=== PATIENT | male | born 1955 | race Caucasian/White ===

== ENCOUNTER 2022-07-31 06:25 | Inpatient (IN) ==
[2022-07-29 12:31] LABS: Albumin 3.5 G/DL (3.4-5.0); Bilirubin,Total 0.6 MG/DL (0.20-1.00); Calcium 8.4 MG/DL (8.5-10.1); Osmolality,Calculated 276.5 MOS/KG (273-304); Potassium 4.2 MMOL/L (3.5-5.1)
[2022-07-29 19:53] LABS: Basophils % 0.3 % (0.0-0.8); Eosinophils # 0.3 10*3/uL (0.0-0.87); Eosinophils % 3.9 % (0.00-10.9); Hemoglobin 12.1 GM/DL (14.0-18.0); Immature Granulocytes % 0.5 %; Immature Granulocytes Absolute 0.03 #; Lymphocytes # 1.2 10*3/uL (1.4-4.0); Lymphocytes % 18.3 % (21.2-54.2); Mean Corpuscular HGB Conc 32.7 GM/DL (32-36); Mean Corpuscular Volume 91.1 FL (87-102); Mean Platelet Volume 10.8 FL (9.6-12.0); Monocytes # 0.6 10*3/uL (0.11-0.8); Monocytes % 9.4 % (1.7-12.7); Neutrophils % 67.6 % (38.7-73.9); Platelet Count 154 T/CUMM (130-400); Red Blood Count 4.06 MC/CUMM (3.8-5.5); Red Cell Distribution Width 14.3 % (9.3-17.3); White Blood Count 6.4 T/CUMM (4-12)
[2022-07-31] MEDS ORDERED: LACTATED RINGERS 1,000 ML IV SCH (08:30)
[2022-07-31] MEDS ORDERED: LIDOCAINE 2% 5 ML VIAL ONE (09:44)
[2022-07-31] MEDS ORDERED: NEOSTIGMINE 10 MG/10 ML VIAL ONE (09:44)
[2022-07-31] MEDS ORDERED: propofoL 200 MG/20 ML VIAL IV ONE (09:44)
[2022-07-31] MEDS ORDERED: GLYCOPYRROLATE 0.4 MG/2 ML VIAL ONE (09:45)
[2022-07-31] MEDS ORDERED: SEVOFLURANE 1 UNIT/15 MINUTE INH ONE (09:45)
[2022-07-31] MEDS ORDERED: MIDAZOLAM 2 MG/2 ML VIAL ONE (09:45)
[2022-07-31] MEDS ORDERED: ROCURONIUM 50 MG/5 ML VIAL IV ONE (09:45)
[2022-07-31] MEDS ORDERED: fentaNYL 250 MCG/5 ML VIAL ONE (09:45)
[2022-07-31] MEDS ORDERED: HEPARIN/NACL 0.9% 2 UNITS/ML 1,000 UNIT/500 ML BAG IV ONE (09:47)
[2022-07-31] MEDS ORDERED: HEPARIN 10,000 UNIT/10 ML VIAL ONE (09:47)
[2022-07-31] MEDS ORDERED: HEPARIN/NACL 0.9% 2 UNITS/ML 6,000 UNIT/3,000 ML BAG IV ONE (10:29)
[2022-07-31] MEDS ORDERED: ONDANSETRON 4 MG/2 ML VIAL IV PRN (12:23)
[2022-07-31] MEDS: HYDROmorphone 1 MG/1 ML SYRINGE IV PRN ×2 (15:21→21:47)
[2022-07-31] MEDS: LACTATED RINGERS 1,000 ML IV SCH ×2 (19:25→20:30)
[2022-07-31] MEDS ORDERED: amLODIPine 5 MG TABLET PO SCH (21:00)
[2022-07-31] MEDS: TAMSULOSIN 0.4 MG CAPSULE PO SCH (21:39)
[2022-07-31] MEDS: lisinopriL 10 MG TABLET PO SCH (21:43)
[2022-07-31] MEDS: DAROLUTAMIDE 300 MG PO SCH (21:43)
[2022-08-01] MEDS: LACTATED RINGERS 1,000 ML IV SCH (02:30)
[2022-08-01 05:51] LABS: Basophils % 0.1 % (0.0-0.8); Eosinophils % 0.1 % (0.00-10.9); Hematocrit 36.5 VOL% (42.0-52.0); Hemoglobin 11.8 GM/DL (14.0-18.0); Immature Granulocytes % 0.6 %; Immature Granulocytes Absolute 0.06 #; Lymphocytes # 0.6 10*3/uL (1.4-4.0); Lymphocytes % 5.5 % (21.2-54.2); Mean Corpuscular HGB Conc 32.3 GM/DL (32-36); Mean Corpuscular Volume 91.3 FL (87-102); Monocytes # 0.8 10*3/uL (0.11-0.8); Monocytes % 7.5 % (1.7-12.7); Neutrophils % 86.2 % (38.7-73.9); Platelet Count 129 T/CUMM (130-400); Red Cell Distribution Width 13.8 % (9.3-17.3); White Blood Count 10.3 T/CUMM (4-12)
[2022-08-01 06:15] LABS: Calcium 7.8 MG/DL (8.5-10.1); Osmolality,Calculated 276.7 MOS/KG (273-304); Potassium 4.1 MMOL/L (3.5-5.1)
[2022-08-01] MEDS ORDERED: DAPAGLIFLOZIN 10 MG TABLET PO SCH (09:00)
[2022-08-01] MEDS ORDERED: METOPROLOL SUCCINATE XL 25 MG TABLET PO SCH (09:00)
[2022-08-01] MEDS: TAMSULOSIN 0.4 MG CAPSULE PO SCH (09:52)
[2022-08-01] MEDS: lisinopriL 10 MG TABLET PO SCH (09:52)
[2022-08-01] MEDS: DAROLUTAMIDE 300 MG PO SCH (10:22)
[2022-08-01 11:56] VITALS: BP 134/81
== END 2022-08-01 13:06 | disposition home or self-care (01) | DRG 269 ==
LOC: N.SDS 06:25 → N.SDSINP 06:27 → EDSTATUS 06:30 → N.SDSINP 12:23 → N.5E 14:03
PROVIDERS: ADMIT Surgery; ATTEND Surgery
PROC: IRERAAA (2022-07-31 06:35)

== ENCOUNTER 2022-08-08 19:12 | Inpatient (IN) ==
[2022-08-08] MEDS ORDERED: HEPARIN DRIP 25,000 UNITS/500 ML PREMIX IV SCH (19:30)
[2022-08-08 19:50] LABS: Basophils % 0.2 % (0.0-0.8); Eosinophils # 0.1 10*3/uL (0.0-0.87); Eosinophils % 0.7 % (0.00-10.9); Hematocrit 28.5 VOL% (42.0-52.0); Hemoglobin 9.5 GM/DL (14.0-18.0); Immature Granulocytes % 0.7 %; Immature Granulocytes Absolute 0.06 #; Lymphocytes # 0.7 10*3/uL (1.4-4.0); Lymphocytes % 7.5 % (21.2-54.2); Mean Corpuscular HGB Conc 33.3 GM/DL (32-36); Mean Corpuscular Volume 88.8 FL (87-102); Mean Platelet Volume 9.9 FL (9.6-12.0); Monocytes # 0.6 10*3/uL (0.11-0.8); Monocytes % 7.2 % (1.7-12.7); Neutrophils % 83.7 % (38.7-73.9); Platelet Count 167 T/CUMM (130-400); Red Blood Count 3.21 MC/CUMM (3.8-5.5); Red Cell Distribution Width 13.8 % (9.3-17.3); White Blood Count 8.6 T/CUMM (4-12)
[2022-08-08 20:00] LABS: PT Patient Result 11.2 SECS (10.1-12.1); Partial Thromboplastin Time 35.6 SECS (23.7-32.9)
[2022-08-08 20:07] LABS: Albumin 2.5 G/DL (3.4-5.0); Bilirubin,Total 0.6 MG/DL (0.20-1.00); Osmolality,Calculated 273.1 MOS/KG (273-304); Potassium 4.2 MMOL/L (3.5-5.1); Total Protein 6.8 G/DL (6.4-8.2)
[2022-08-08] MEDS ORDERED: ONDANSETRON 4 MG/2 ML VIAL IV PRN (20:28)
[2022-08-08] MEDS: lisinopriL 10 MG TABLET PO SCH (22:30)
[2022-08-08] MEDS: amLODIPine 5 MG TABLET PO SCH (22:30)
[2022-08-08] MEDS: TAMSULOSIN 0.4 MG CAPSULE PO SCH (22:30)
[2022-08-09] MEDS: DAROLUTAMIDE 300 MG PO SCH ×3 (00:15→21:38)
[2022-08-09 02:40] LABS: Basophils % 0.4 % (0.0-0.8); Eosinophils # 0.1 10*3/uL (0.0-0.87); Eosinophils % 2.3 % (0.00-10.9); Hematocrit 29.8 VOL% (42.0-52.0); Hemoglobin 10.1 GM/DL (14.0-18.0); Immature Granulocytes % 1.7 %; Immature Granulocytes Absolute 0.08 #; Lymphocytes # 0.7 10*3/uL (1.4-4.0); Mean Corpuscular HGB Conc 33.9 GM/DL (32-36); Mean Corpuscular Volume 88.7 FL (87-102); Mean Platelet Volume 10.1 FL (9.6-12.0); Monocytes # 0.2 10*3/uL (0.11-0.8); Monocytes % 4.4 % (1.7-12.7); Neutrophils % 76.2 % (38.7-73.9); Platelet Count 125 T/CUMM (130-400); Red Blood Count 3.36 MC/CUMM (3.8-5.5); Red Cell Distribution Width 13.9 % (9.3-17.3); White Blood Count 4.8 T/CUMM (4-12)
[2022-08-09] MEDS: ACETAMINOPHEN 325 MG TABLET PO PRN ×3 (05:05→19:00)
[2022-08-09] MEDS ORDERED: HEPARIN 5,000 UNIT/1 ML VIAL IV ONE (05:30)
[2022-08-09] MEDS ORDERED: ceFAZolin 2,000 MG/50 ML DUPLEX IV ONE (06:00)
[2022-08-09] MEDS ORDERED: ONDANSETRON 4 MG/2 ML VIAL ONE (06:49)
[2022-08-09] MEDS ORDERED: LIDOCAINE 2% 5 ML VIAL ONE (06:49)
[2022-08-09] MEDS ORDERED: SEVOFLURANE 1 UNIT/15 MINUTE INH ONE (06:49)
[2022-08-09] MEDS ORDERED: ETOMIDATE 40 MG/20 ML VIAL IV ONE (06:49)
[2022-08-09] MEDS ORDERED: fentaNYL 100 MCG/2 ML VIAL ONE (06:50)
[2022-08-09] MEDS ORDERED: LIDOCAINE 1% 5 ML VIAL ONE (08:24)
[2022-08-09] MEDS: TAMSULOSIN 0.4 MG CAPSULE PO SCH ×2 (09:30→21:39)
[2022-08-09] MEDS: PANTOPRAZOLE 40 MG TABLET PO SCH (09:30)
[2022-08-09] MEDS ORDERED: HEPARIN 10,000 UNIT/10 ML VIAL ONE (09:41)
[2022-08-09] MEDS ORDERED: PHENYLEPHRINE 1 MG/10 ML SYRINGE IV ONE (09:41)
[2022-08-09] MEDS ORDERED: TISSUE ADHESIVE 1 EACH APPLICATOR TOP ONE (10:20)
[2022-08-09] MEDS: lisinopriL 10 MG TABLET PO SCH ×2 (12:00→21:39)
[2022-08-09] MEDS: ASPIRIN EC 81 MG TABLET PO SCH (12:00)
[2022-08-09] MEDS: amLODIPine 5 MG TABLET PO SCH (21:39)
[2022-08-09] MEDS: RIVAROXABAN 2.5 MG TABLET PO SCH (21:39)
[2022-08-10] MEDS: ACETAMINOPHEN 325 MG TABLET PO PRN (03:09)
[2022-08-10 05:43] LABS: Basophils % 0.2 % (0.0-0.8); Eosinophils # 0.2 10*3/uL (0.0-0.87); Eosinophils % 3.8 % (0.00-10.9); Hematocrit 26.5 VOL% (42.0-52.0); Hemoglobin 8.6 GM/DL (14.0-18.0); Immature Granulocytes % 0.7 %; Immature Granulocytes Absolute 0.04 #; Lymphocytes # 0.6 10*3/uL (1.4-4.0); Lymphocytes % 10.6 % (21.2-54.2); Mean Corpuscular HGB Conc 32.5 GM/DL (32-36); Mean Corpuscular Volume 90.8 FL (87-102); Mean Platelet Volume 10.3 FL (9.6-12.0); Monocytes # 0.6 10*3/uL (0.11-0.8); Monocytes % 10.3 % (1.7-12.7); Neutrophils % 74.4 % (38.7-73.9); Platelet Count 72 T/CUMM (130-400); Red Blood Count 2.92 MC/CUMM (3.8-5.5); Red Cell Distribution Width 13.8 % (9.3-17.3)
[2022-08-10 06:03] LABS: Calcium 7.4 MG/DL (8.5-10.1); Osmolality,Calculated 281.5 MOS/KG (273-304); Potassium 4.1 MMOL/L (3.5-5.1)
[2022-08-10 06:04] LABS: Hypochromia Slight; Microcytosis Slight; Platelet Estimate Decreased
[2022-08-10] MEDS: ASPIRIN EC 81 MG TABLET PO SCH (08:13)
[2022-08-10] MEDS: TAMSULOSIN 0.4 MG CAPSULE PO SCH (08:13)
[2022-08-10] MEDS: DAROLUTAMIDE 300 MG PO SCH (08:13)
[2022-08-10] MEDS: lisinopriL 10 MG TABLET PO SCH (08:13)
[2022-08-10] MEDS: PANTOPRAZOLE 40 MG TABLET PO SCH (08:13)
[2022-08-10] MEDS: RIVAROXABAN 2.5 MG TABLET PO SCH (08:13)
[2022-08-10 11:26] VITALS: BP 122/69
== END 2022-08-10 11:38 | disposition home or self-care (01) | DRG 271 ==
LOC: EDUNIT# → EDBD → N.ED 19:12 → N.EDINP 20:28 → N.3E 21:14
PROVIDERS: ADMIT Surgery; ATTEND Surgery
PROC: IRAGPEL (2022-08-09 09:35)